=== PATIENT | male | born 1970 | race Caucasian/White ===

== ENCOUNTER 2019-02-22 19:20 | Emergency (ER) | payer OTHER ==
[~2019-02-22] VITALS: Ht 170.2 cm; Wt 106.6 kg
[2019-02-22] MEDS ORDERED: ZOLOFT100 MG PO (20:05)
[2019-02-22] MEDS ORDERED: PRAVACHOL40 MG PO (20:06)
[2019-02-22] MEDS ORDERED: ZESTORETIC 20-1 EACH PO (20:07)
--- NOTE | 2019-02-23 06:42 | EKG ---
[facility] [address] [facility] [place], [place] [address] Signed Normal sinus rhythm Normal ECG No previous ECGs available Confirmed by DOUGLAS MACKENZIE MD [id number] on 02/23/2019 6:42:10 AM Electronically Signed By: DOUGLAS MACKENZIE MD 02/23/19 0642 PATIENT NAME: SUNNY SOSA Electrocardiogram DATE OF : 70 PHYSICIAN: DOUGLAS MACKENZIE MD REPORT #: [id number] REPORT IS CONFIDENTIAL AND NOT TO BE RELEASED WITHOUT AUTHORIZATION
== END 2019-02-22 20:04 | disposition home or self-care (01) ==
LOC: ED 19:20
DX: R07.9 Chest pain, unspecified (principal); Z79.899 Other long term (current) drug therapy
CPT/HCPCS: 71046; 80053; 83735; 84484; 85025; 93005; 93010; 99285-25